=== PATIENT | female | born 1965 | race Caucasian/White ===

== ENCOUNTER 2022-10-25 14:09 | Emergency (ER) | payer BC, MEDICAID, SELFPAY ==
[2022-10-25 14:12] VITALS: BP 184/98; PULSE 84; RESP 16; TEMP 36.4; O2SAT 98; BMI 39.1
--- NOTE | 2022-10-25 15:07 | EDS_ITS ---
HPI History of Present Illness Chief Complaint: Eye Problem [facility] Medical History (Updated 10/25/22 @ 18:[address] León Franz, DO) Anxiety HTN (hypertension) Home Medications metoclopramide HCl 5 mg tablet (Reglan) 5 mg PO Q8H PRN PRN nausea and vomiting 7 days #20 tabs 10/25/22 [Rx Last Taken Unknown] Allergy/AdvReac Type Severity Reaction Status Date / Time doxycycline Allergy Hives Verified 10/25/22 14:11 morphine AdvReac Vomiting Verified 10/25/22 14:11 Social History Smoking Status: Former smoker EXAM Physical Exam Const Vital Signs: 10/25/22 14:12 Temperature 97.5 F L Temperature Source Temporal Pulse Rate 84 Respiratory Rate 16 Blood Pressure 184/98 H Blood Pressure Mean 126 Pulse Ox 98 Oxygen Delivery Method Room Air [facility] Narrative Medical decision making narrative: HISTORY OF PRESENT ILLNESS: 57-year-old female here with right eye pain. Notes this began today. Notes history of migraines. Denies any loss of vision denies any curtain falling or vision REVIEW OF SYSTEMS: Pertinent positives: Eye pain Pertinent negatives: Loss of vision PHYSICAL EXAM: Nursing triage notes reviewed, Vital signs reviewed Constitutional: please see mdm HENT: MMM, no temporal artery tenderness Eyes: Pupils equal round and reactive to light, Extraocular muscles intact, visual parikh intact, no obvious foreign bodies on lid eversion. No obvious cellulitis noted to upper or lower lids. No proptosis. Visual acuity 20/40 OD, 20/25 OS. Ocular ultrasound without evidence of vitreous hemorrhage, retinal detachment, optic nerve diameter 5 mm, no sign of increased IOP Neck: No stridor, no JVD, full neck ROM Neuro: No focal neurological deficits, cranial nerves II through XII intact, 5/5 strength in all extremities. Intact sensation to light touch in all extremities, 2+ reflexes bilateral patella tendons. Normal gait. No ataxia. Skin: No rash or lesions noted MEDICAL DECISION MAKING: Chief Complaint: Right eye pain External records reviewed: Seen in urgent care prior to arrival. There she received a fluorescein exam, tetracaine. Pain improved with tetracaine fluorescein exam revealed no evidence of globe rupture. Nurse petitioner there was concerned about orbital cellulitis. Factors affecting care: Hypertension, anxiety Social determinants of health: none History obtained from others: none Consults: none ALL IMAGES (IF OBTAINED) HAVE BEEN PERSONALLY REVIEWED AND INTERPRETED BY MYSELF. [facility] Narrative: The patient was hemodynamically stable, afebrile, nontoxic-appearing I considered the following differential diagnosis: Mass, orbital cellulitis, orbital hematoma, temporal arteritis, glaucoma, vitreous hemorrhage, vitreous detachment, eye foreign body Patient noted relief on prior fluorescein and tetracaine exam this is more consistent with likely superficial ocular injury or trauma possibly nonvisualized foreign body.. No obvious foreign body lid inversion. No evidence of elevated IOP with a normal optic nerve diameter. No evidence of preseptal cellulitis. There is no temporal artery tenderness to suggest temporal arteritis. CT scan revealed no evidence of oral cellulitis mass or hematoma. No clear life or eye threatening etiology could be ascertained. Will give ophthalmology follow-up. The patient and/or family, caregivers express understanding. The patient and/or family, caregivers agrees with the plan. Total critical care time today provided was at least 0 minutes. This excludes separately billable procedures. Critical care time (if documented) is secondary to the patient having high probability of clinically significant/life threatening deterioration in the patient's condition which required my urgent intervention. Shared decision making: I will have a discussion with the patient and or visitors regarding risk/benefits of further testing or admission. They will be made aware of of the risk/benefits inherent in this decision they will be given the opportunity to voice understanding. Discharge Plan Triage Chief Complaint: Eye Problem ED Provider: León Franz Dx/Rx/DC Orders Clinical Impression: Acute eye pain Instructions: ED Pain, Acute, Uncertain Cause Prescriptions: New metoclopramide HCl [Reglan] 5 mg tablet 5 mg PO Q8H PRN PRN (Reason: nausea and vomiting) 7 Days Qty: 20 0RF Primary Care Provider: FLORIDALMA MENDOZA MD Referrals: Immanuel Zacarias MD [Med Staff - Active Staff] - Activity Restrictions/Additional Instructions: Thank you for trusting us with your care today! Please take Tylenol (2 pills, 650 mg), ibuprofen (2 pills, 400 mg) every 6 hours as needed for pain and fever control. Please take Reglan as needed for ongoing headache relief. Please return to the emergency department if your symptoms change or worsen. Specifically develop loss of vision, worsening headache, numbness tingling, slurred speech, Please follow with your ophthalmology for further outpatient evaluation and management. Disposition Disposition: Home, Self Care
--- NOTE | 2022-10-25 15:49 | CT_ITS ---
EXAM: CT MAXILLOFACIAL WITH INTRAVENOUS CONTRAST CLINICAL INDICATION: right eye pain and swelling TECHNIQUE: Helically acquired images were obtained of the face with intravenous contrast. This CT exam was performed using one or more of the following dose reduction techniques: automated exposure control, adjustment of the mA and/or kV according to patient size, and/or use of iterative reconstruction technique. CONTRAST: IV 100mL Isovue-370 RADIATION DOSE: CTDIvol = 29.38 mGy, DLP = 576.84 mGy-cm COMPARISON: No relevant prior studies available. FINDINGS: BONES/JOINTS: There is a defect of the left lamina papyracea consistent for previous traumatic injury and a healed fracture site. No discrete lytic or blastic abnormalities. SOFT TISSUES: Unremarkable. No focal subcutaneous swelling. No discrete fluid collections. ORBITS: There is no retrobulbar hematoma. No acute periorbital findings. Both globes are unremarkable. Extraocular muscles are normal. SINUSES: Left maxillary sinus disease. Right maxillary sinus disease. Ethmoid sinus disease. Right frontal sinus disease. MASTOID AIR CELLS: Unremarkable as visualized. Clear. DENTAL: No acute findings. No periodontal osseous erosion. CT/Sinus/Facial Bone WITH Contras IMPRESSION: 1. Left maxillary sinus disease. Right maxillary sinus disease. Ethmoid sinus disease. Right frontal sinus disease. 2. There is no retrobulbar hematoma. No acute periorbital findings. Electronically Signed: Keron Arvizu MD at 17:49 EDT Reading Location ID and State: [facility] / [place] , Service support ,
[2022-10-25 17:08] LABS: Hematocrit 39.9 % (37-47); Hemoglobin 13.1 g/dL (12.0-15.0); Mean Corp Hgb Conc 32.8 g/dL (32-36); Mean Corpuscular Hgb 27.8 pg (27.0-32.0); Mean Corpuscular Volume 84.5 fL (81-99); Mean Platelet Vol. 9.9 fl (6.2-12.0); Platelet Count 298 K/mm3 (150-450); RBC Distribution Width CV 14.1 % (11.6-14.6); RBC Distribution Width SD 43.6 fl (35.1-43.9); Red Blood Count 4.72 M/mm3 (4.2-5.4); White Blood Count 7.4 K/mm3 (4.4-11.0)
[2022-10-25 17:11] LABS: Anion Gap 5 (5-15); BUN 15 mg/dL (7-18); BUN/Creat Ratio 16.6 RATIO (10-20); Calcium,Total 9.3 mg/dL (8.5-10.1); Chloride 110 mmol/L (98-107); EST Glomerular Filtration Rate 68 mL/min (>60); Est Glom Filt Rate - Afr Amer 83 mL/min (>60); Estimated Creatinine Clearance 51.41 ml/min; Glucose 88 mg/dL (74-106); Potassium 3.6 mmol/L (3.5-5.1); Sodium Level 141 mmol/L (136-145)
== END 2022-10-25 18:24 | disposition home or self-care (01) ==
PROVIDERS: Emergency Provider Emergency Medicine; Visit Provider Emergency Medicine
DX: H57.11 Ocular pain, right eye (principal); I10 Essential (primary) hypertension; F41.9 Anxiety disorder, unspecified; Z87.891 Personal history of nicotine dependence
CPT/HCPCS: 70487; 80048; 85027; 99282; Q9967; A4216